=== PATIENT | female | born 1990 | race Caucasian/White ===

== ENCOUNTER → 2021-05-17 17:49 | Outpatient (BNVA) | payer BC, MEDICAID, SELFPAY | PROVIDERS: Family Provider Nurse Practitioner Family; PCP Nurse Practitioner Family; Visit Provider Nurse Practitioner Family | DX: Z87.42 Personal history of other diseases of the female genital tract (principal) | CPT/HCPCS: 81025 ==

== ENCOUNTER → 2021-10-10 11:09 | Outpatient (BNVA) | payer BC, MEDICAID, SELFPAY | PROVIDERS: Family Provider Nurse Practitioner Family; PCP Nurse Practitioner Family; Visit Provider Family Medicine | DX: E28.2 Polycystic ovarian syndrome (principal); N64.52 Nipple discharge; Z13.220 Encounter for screening for lipoid disorders; Z13.6 Encounter for screening for cardiovascular disorders; Z13.1 Encounter for screening for diabetes mellitus | CPT/HCPCS: 80053; 80061; 83001; 83002; 83036; 84146; 84403; 84443; 84702; 85025 ==